=== PATIENT | female | born 1970 | race Caucasian/White ===

== ENCOUNTER 2025-04-05 21:53 | Emergency (ER) | payer SELFPAY ==
[2025-04-05 21:58] VITALS: BP 115/77
--- NOTE | 2025-04-05 23:45 | ED.GENMED ---
History of Present Illness
General
Chief Complaint: Crisis Evaluation
Time Seen by Provider: 04/05/25 22:34
History of Present Illness
History of Present Illness:
55-year-old female without reported past medical history presenting under 302 status. Patient was allegedly pulled over by police, patient proceeded with erratic behavior. Her car was getting towed and she started to say that she wanted to kill
herself, proceeded to run into traffic. She had stated to police that she would find a way to harm herself. On arrival to the hospital, patient denying suicidal ideation or intention. Notes that she has been very emotional, a lot of social
stressors including financial and occupational. She otherwise denies acute medical complaint. She denies any known mental health issues
Phy Exam
Physical Exam
Physical Exam:
General: Well-appearing, no clinical signs of dehydration, nontoxic and in no acute distress
HEENT: protecting airway
Neck: appears supple
CV: Normal heart rate, regular rhythm
Resp: No accessory muscle use, no increased work of breathing, lungs clear to auscultation bilaterally
Abd: No distention
Extremities: No deformities, no swelling
Neuro: alert, no focal neurologic deficit
: deferred
Rectal: deferred
Psych: Normal affect
Skin: Intact
Course
Orders/Labs/Results
Orders:
Orders
04/05/25 22:02
1:1 Observation - Suicide/ Violent Behavior As Directed
04/05/25 22:06
Crisis Consult Urgent
Reason for Consult: 302 petition by police
Vital Signs
Initial and Last Documented VS:
Initial Vital Signs
Temp Pulse Resp BP Pulse Ox
98.9 F 70 18 115/77 98
04/05/25 21:58 04/05/25 21:58 04/05/25 21:58 04/05/25 21:58 04/05/25 21:58
Last Documented Vital Signs
Temp Pulse Resp BP Pulse Ox
98.9 F 82 16 124/68 100
04/05/25 21:58 04/06/25 00:00 04/06/25 00:00 04/06/25 00:00 04/06/25 00:00
MDM/Problems Addressed
MDM/Problems Addressed:
55-year-old female presenting under 302. Vital signs are normal.
On exam patient resting comfortably, however emotional. Presently denying suicidal or homicidal ideation. Do suspect that patient likely had an emotional breakdown rather than an acute psychotic event. However, 302 reviewed, alarming behavior
preceding hospital visit. Patient will remain under one-to-one status at this time. Telepsych to evaluate for ultimate disposition
00:30 - Per telepsych, feel patient is appropriate for discharge home. Agree that patient was emotional, likely irrational, however does not appear to be a present threat to herself or others. Reevaluated patient, again denying any suicidal or
homicidal ideations. Ultimately feel stable for discharge, however very strict return precautions communicated to patient who verbalized understanding.
*Critical Care Note
Total Time (30-74mins, 75-104mins- exclusive of procedures): Not Applicable
ED Attending Note
-
Portions of this chart may have been created with voice recognition software.� Occasional wrong word or��sound alike� substitutions may have occurred due to the inherent limitations of voice recognition software.
Discharge Plan
Departure
Patient Disposition: Home (Routine Discharge)
Date of Disposition: 04/06/25
Time of Disposition: 00:35
Patient with high blood pressure during this ER visit?: No
Condition: Fair
Discharge Problem:
Emotional crisis
Instructions: Depression, Adult (DC)
Prescriptions:
No Action
No Current Medications
0
Referrals:
NONE,* [Family Provider] -
Activity Restrictions/Additional Instructions:
You were seen in the emergency department for concern of suicidal ideation
You denied any suicidal ideations or intention in the hospital. We recommend that you follow-up with outpatient therapist
Please follow-up closely with your primary care physician.
Return to the emergency department for any worsening of your symptoms or any development of suicidal thoughts or plan, or any development of chest pain, difficulty breathing, abdominal pain with persistent vomiting and inability to tolerate food or
liquid by mouth (concern for dehydration), weakness, headache or confusion, fever greater than 100.4, or any additional symptoms that are concerning to you.
Thank you for choosing [facility].
Interventions
Interventions:
*Risk Screen - Suicide Last Done: 04/05/25 21:58
*General Assessment Last Done: 04/05/25 21:58
*Neglect/Abuse Screening Last Done: 04/05/25 21:58
*ED- Fall Risk Assessment Last Done: 04/05/25 21:58
*ED COVID-19 Vaccine History Last Done: 04/05/25 21:58
ED-Psychological Assessment Last Done: 04/05/25 22:08
Discharge Date and Time
Print Language: [id number]
[2025-04-06] VITALS: BP 124/68
== END 2025-04-06 01:34 | disposition home or self-care (01) ==
LOC: EMR 21:53
PROVIDERS: EMERGENCY PHYSICIAN Student in an Organized Health Care Education/Training Program
DX: F43.20 Adjustment disorder, unspecified (principal); Z65.8 Other specified problems related to psychosocial circumstances
CPT/HCPCS: 99283